=== PATIENT | male | born 1965 | race Native Hawaiian/Other Pacific Islander ===

== ENCOUNTER 2016-04-27 12:40 | Emergency (ER) | payer OTHER ==
[2016-04-27] MEDS ORDERED: Adacel (T-DAP) 0.5 ML VIAL ONE (12:47)
[2016-04-27] MEDS ORDERED: Lidocaine 1% 20 ML MDV ONE (12:47)
[2016-04-27] MEDS ORDERED: Bacitracin Zinc 1 Packet ONE (13:33)
== END 2016-04-27 13:59 | disposition home or self-care (01) ==
LOC: BURERS 12:40
DX: S81.812A Laceration without foreign body, left lower leg, initial encounter (principal); I25.10 Atherosclerotic heart disease of native coronary artery without angina pectoris; I25.2 Old myocardial infarction; J45.909 Unspecified asthma, uncomplicated; Z87.891 Personal history of nicotine dependence; Z79.82 Long term (current) use of aspirin; Z79.899 Other long term (current) drug therapy; W45.8XXA Other foreign body or object entering through skin, initial encounter
CPT/HCPCS: 12004; 90471; 90715; J2001

== ENCOUNTER 2021-11-09 14:37 | Emergency (ER) | payer BC ==
[2021-11-09] MEDS ORDERED: Lidocaine 1% PF 5 ML VIAL ONE (15:08)
[2021-11-09] MEDS ORDERED: Bacitracin 1 PK ONE (15:19)
== END 2021-11-09 15:32 | disposition home or self-care (01) ==
LOC: BURERS 14:37
DX: S01.01XA Laceration without foreign body of scalp, initial encounter (principal); I25.10 Atherosclerotic heart disease of native coronary artery without angina pectoris; I25.2 Old myocardial infarction; Z87.891 Personal history of nicotine dependence; Z79.899 Other long term (current) drug therapy; W22.8XXA Striking against or struck by other objects, initial encounter
CPT/HCPCS: 12001